=== PATIENT | female | born 1955 | race Caucasian/White ===

== ENCOUNTER 2018-12-16 07:52 | Day surgery (SDC) | payer OTHER ==
[2018-12-16] MEDS ORDERED: PROPOFOL 10 MG/ML VIAL IV ONE (07:53)
[2018-12-16] MEDS ORDERED: LIDOCAINE 2% MDV (20MG/ML) 20ML VIAL IV ONE (07:53)
--- NOTE | 2018-12-20 08:35 | Operative Note ---
SURGEON: Marilyn Hernandez MD OPERATION: COLONOSCOPY. INDICATIONS: This is a 63-year-old female with history of colon polyps who presented for surveillance colonoscopy. POSTOPERATIVE DIAGNOSES: 1. Left-sided colonic diverticulosis. 2. Otherwise normal colon. ANESTHESIA: Sedation is per Anesthesia. Pulse oximetry was monitored throughout the procedure to maintain O2 saturation of 90% or greater. Supplemental oxygen was administered via nasal cannula. Cardiac and vital signs were monitored throughout the duration of the procedure, and they were stable. The procedure of colonoscopy and risks and alternatives of the procedure, including the risk of bleeding and perforation, among others, were explained to the patient who voiced understanding and agreed to have the procedure done. Physical examination was performed, and the patient was found stable for sedation. PROCEDURE: The patient was placed in the left lateral position. Sedation was initiated. A digital rectal exam was performed and showed some mild external hemorrhoids with no palpable rectal masses. An Olympus PCF-180AL colonoscope was then inserted into the rectum under direct visualization. It was advanced to the cecum without difficulty. The ileocecal valve and appendiceal orifice were identified and photographed. The colonic mucosa was carefully examined upon introduction of the colonoscope. There were scattered diverticula noted in the sigmoid and descending colon. There were no other lesions noted. The colonoscope was then withdrawn while carefully examining the colonic mucosal surfaces. The bowel preparation was good. No other lesions were noted. In the rectum, retroflexion was performed and grade 1 internal hemorrhoids were noted. The colonoscope was then withdrawn and the procedure was terminated. The patient tolerated the procedure well without any immediate complications. The patient remained with stable vital signs and was transferred to the recovery room. RECOMMENDATIONS: 1. The patient should be on a high-fiber diet. 2. The patient is to have a repeat colonoscopy for surveillance in 5 years. Thank you for allowing me to participate in the care of your patient. CC: Naveen OMALLEY
== END 2018-12-16 10:07 | disposition home or self-care (01) ==
LOC: HOP 07:52
PROVIDERS: ATTEND Internal Medicine Gastroenterology
DX: Z12.11 Encounter for screening for malignant neoplasm of colon (principal); Z86.010 Personal history of colon polyps; K57.30 Diverticulosis of large intestine without perforation or abscess without bleeding; E03.9 Hypothyroidism, unspecified
CPT/HCPCS: 00812; G0105

== ENCOUNTER 2019-07-31 08:25 | Day surgery (SDC) | payer OTHER ==
[2019-07-31] MEDS ORDERED: LIDOCAINE 2% MDV (20MG/ML) 20ML VIAL IV ONE (08:26)
[2019-07-31] MEDS ORDERED: PROPOFOL 10 MG/ML VIAL IV ONE (08:26)
--- NOTE | 2019-08-03 08:20 | Operative Note ---
OPERATION: ESOPHAGOGASTRODUODENOSCOPY with biopsy. PREOPERATIVE DIAGNOSIS: Episodic melena. POSTOPERATIVE DIAGNOSIS: Gastric ulceration with surrounding edema without stigmata of recent hemorrhage, fresh or old blood. PROCEDURE: After informed consent was obtained from the patient, she was placed in the left lateral decubitus position in the endoscopy suite, sedated and monitored by the department of anesthesia. A well-lubricated GVC935 gastroscope was placed in the posterior oropharynx under direct visualization and passed to the proximal esophagus. The endoscope was advanced through the proximal, mid, and distal esophagus. The esophagus in its length was unremarkable. The GE junction was unremarkable. No ulcers, erosions, strictures, varices, or mass lesions were seen. The gastric body and the antrum were inspected. In the antrum, in the area on the lesser curve between the incisura and the pylorus, there were marked edematous and erosive as well as ulcerative changes. No fresh or old blood was seen. There was one small ulcer with a pigmented spot but no protuberance. No bleeding was seen. There was some mild bulbar duodenitis. The duodenal sweep was unremarkable. J-turn views of the proximal stomach were unrevealing. The endoscope was then straightened. Biopsies were obtained from the edematous portion of the antrum. No excessive bleeding was noted. The endoscope was removed from the patient with no new findings noted. RECOMMENDATIONS: I will start the patient on omeprazole 40 mg b.i.d. and repeat her upper endoscopy in 8 weeks in order to assess healing. In addition, we will await results of tissue histology. As always, thank you for allowing me to participate in the healthcare of your patients. GARIMA
== END 2019-07-31 10:45 | disposition home or self-care (01) ==
LOC: HOP 08:25
PROVIDERS: ATTEND Internal Medicine Gastroenterology
DX: K25.9 Gastric ulcer, unspecified as acute or chronic, without hemorrhage or perforation (principal); K58.9 Irritable bowel syndrome, unspecified; E03.9 Hypothyroidism, unspecified; M54.9 Dorsalgia, unspecified

== ENCOUNTER 2019-09-28 07:57 | Day surgery (SDC) | payer OTHER ==
[2019-09-28] MEDS ORDERED: PROPOFOL 10 MG/ML VIAL IV ONE (07:58)
[2019-09-28] MEDS ORDERED: LIDOCAINE 2% MDV (20MG/ML) 20ML VIAL IV ONE (07:58)
--- NOTE | 2019-10-03 14:01 | Operative Note ---
OPERATION: ESOPHAGOGASTRODUODENOSCOPY. PREOPERATIVE DIAGNOSIS: Ulcer and followup. POSTOPERATIVE DIAGNOSIS: Healed ulcer with resulting antral deformity of unclear significance. PROCEDURE: After informed consent was obtained from the patient, she was placed in the left lateral decubitus position in the endoscopy suite, sedated and monitored by the department of anesthesia. Once sedated, a well-lubricated [id number] gastroscope was placed in the posterior oropharynx under direct visualization and passed to the proximal esophagus. The endoscope was advanced through the proximal, mid, and distal esophagus. The GE junction and esophagus were unremarkable. The gastric body and antrum were then inspected revealing the previous ulcer in the antrum to be healed. There was some resulting deformity presumably scarring changes. The pylorus, duodenal bulb, and sweep were unremarkable. J-turn views of the proximal stomach were unremarkable. The endoscope was straightened. Biopsies were obtained from the antral deformity. No excessive bleeding was noted. The endoscope was removed from the patient. RECOMMENDATIONS: The patient can reduce her omeprazole to 40 mg once daily. Further recommendations will be based on tissue histology. As always, thank you for allowing me to participate in the healthcare of your patients. GARIMA
== END 2019-09-28 09:42 | disposition home or self-care (01) ==
LOC: HOP 07:57
PROVIDERS: ATTEND Internal Medicine Gastroenterology
DX: K25.9 Gastric ulcer, unspecified as acute or chronic, without hemorrhage or perforation (principal)